=== PATIENT | female | born 1965 | race Caucasian/White ===

== ENCOUNTER → 2017-04-05 | Outpatient (CLI) | payer OTHER ==
[2016-07-04 14:31] VITALS: BP 134/86
--- NOTE | 2017-04-05 16:50 | RAD ---
Indication chronic anterior chest pain. No history of injury. Frontal and lateral views of the chest were obtained and are compared to an examination 07/04/2016. The heart and pulmonary vessels are normal. In the right mid and lower lung field there is an area of slightly increased density on the frontal view which may reflect a focus of scarring or atelectasis. This could be artifactual and is of doubtful clinical significance. A acute finding in the chest is not seen. The left lung is clear. There is no pleural fluid or pneumothorax. If further evaluation of the chest is clinically warranted a CT examination could be performed IMPRESSION: No definite acute or significant finding in the chest. Area of slightly increased density in the right hemithorax. See above discussion
== END | disposition home or self-care (01) ==
LOC: RAD 16:23
PROVIDERS: ATTEND Internal Medicine
DX: R07.89 Other chest pain (principal)
CPT/HCPCS: 71020